=== PATIENT | female | born 1990 | race African-American/Black ===

== ENCOUNTER 2021-10-09 11:09 | Outpatient (REF) | payer OTHER, SELFPAY | END 2021-10-09 11:10 | disposition home or self-care (01) | LOC: HO.LAB 11:09 | PROVIDERS: Visit Provider Internal Medicine | DX: Z13.89 Encounter for screening for other disorder (principal) ==

== ENCOUNTER 2021-10-10 06:28 | Outpatient (REF) | payer MEDICAID, SELFPAY ==
[2021-10-10 07:56] LABS: COVID-19 Test Positive (Negative)
== END 2021-10-10 06:29 | disposition home or self-care (01) ==
LOC: HO.LAB 06:28
PROVIDERS: Visit Provider Internal Medicine
DX: Z20.822 Contact with and (suspected) exposure to COVID-19 (principal)
CPT/HCPCS: 87635; C9803